=== PATIENT | female | born 2000 | race Caucasian/White ===

== ENCOUNTER 2023-07-23 12:10 | Outpatient (CLI) | payer MEDICAID, SELFPAY ==
[~2023-07-23] VITALS: Ht 157.5 cm; Wt 88.2 kg
[2023-07-23 13:18] LABS: HEMATOCRIT 31.8 % (36.0-47.0); HEMOGLOBIN 10.8 g/dl (12.0-15.5); MEAN CORPUSCULAR VOLUME 82.4 fl (80.0-96.0); PLATELET COUNT, AUTOMATED 311 10^3/uL (150-450); RED BLOOD COUNT 3.86 10^6/uL (4.00-5.40); WHITE BLOOD COUNT 16.6 10^3/uL (4.0-10.0)
[2023-07-23 13:40] LABS: URIC ACID 5.1 MG/DL (3.1-7.8)
[2023-07-23 13:41] LABS: LIPASE 29 U/L (12-53)
[2023-07-23 13:42] LABS: LDH LACTATE DEHYDROGENASE 186 U/L (120-246)
[2023-07-23 13:43] LABS: AMYLASE 50 U/L (30-118)
[2023-07-23 13:44] LABS: ALBUMIN 2.9 G/DL (3.2-5.2); ALKALINE PHOSPHATASE 99 U/L (46-116); ALT/SGPT 16 U/L (7.0-40); AST/SGOT 10 U/L (<34); BILIRUBIN,TOTAL 0.4 MG/DL (0.3-1.2); BLOOD UREA NITROGEN 12 MG/DL (9-23); CALCIUM LEVEL 8.7 MG/DL (8.5-10.1); CARBON DIOXIDE LEVEL 21 MMOL/L (20-31); CHLORIDE LEVEL 107 MMOL/L (98-107); CREATININE FOR GFR 0.53 MG/DL (0.55-1.30); GLOMERULAR FILTRATION RATE > 60.0 (>60); GLUCOSE, FASTING 97 MG/DL (60-100); SODIUM LEVEL 135 MMOL/L (136-145); TOTAL PROTEIN 5.9 G/DL (5.7-8.2)
== END 2023-07-23 15:14 | disposition home or self-care (01) ==
LOC: M LDO 12:10
PROVIDERS: ATTEND Obstetrics & Gynecology
DX: O47.03 False labor before 37 completed weeks of gestation, third trimester (principal); O9A.23 Injury, poisoning and certain other consequences of external causes complicating the puerperium; S31.41XA Laceration without foreign body of vagina and vulva, initial encounter; Z3A.34 34 weeks gestation of pregnancy; Y92.9 Unspecified place or not applicable; Y93.9 Activity, unspecified
CPT/HCPCS: 36415; 59025; 76815; 80053; 82150; 83615; 83690; 84550; 85027; G0463